=== PATIENT | female | born 1940 | race Caucasian/White ===

== ENCOUNTER → 2021-02-22 | Outpatient (CLI) | payer MEDICARE, OTHER ==
[2021-02-22 12:41] LABS: HEMOGLOBIN 14.9 gm/dl (12.3-15.3); RED BLOOD COUNT 4.84 M/UL (4.00-5.10); WHITE BLOOD COUNT 7.4 K/UL (4.5-11.0)
[2021-02-22 13:31] LABS: BUN/CREATININE RATIO 19 (0-10)
== END ==
LOC: LAB 11:48
PROVIDERS: Nurse Practitioner Family
DX: M25.562 Pain in left knee (principal); M25.561 Pain in right knee; M25.552 Pain in left hip; I25.10 Atherosclerotic heart disease of native coronary artery without angina pectoris; N39.0 Urinary tract infection, site not specified; R25.1 Tremor, unspecified; E53.8 Deficiency of other specified B group vitamins; E55.9 Vitamin D deficiency, unspecified
CPT/HCPCS: 36415; 73502; 73562; 80053; 80061; 82607; 84439; 84443; 85025

== ENCOUNTER 2021-04-26 17:30 | Emergency (ER) | payer MEDICARE ==
[2021-04-26 20:37] LABS: RED BLOOD COUNT 4.81 M/UL (4.00-5.10); WHITE BLOOD COUNT 5.7 K/UL (4.5-11.0)
[2021-04-26 20:53] LABS: BUN/CREATININE RATIO 55 (0-10)
== END 2021-04-27 13:07 | disposition short-term general hospital (02) ==
LOC: ER1 17:30
DX: G30.9 Alzheimer's disease, unspecified (principal); F02.81 Dementia in other diseases classified elsewhere, unspecified severity, with behavioral disturbance; Z20.822 Contact with and (suspected) exposure to COVID-19
CPT/HCPCS: 80053; 81001; 82550; 82553; 83874; 84439; 84443; 84484; 85025; 93005; 96374; 99285; J2060; U0002

== ENCOUNTER 2021-07-16 07:51 | Emergency (ER) | payer MEDICARE | END 2021-07-16 10:55 | disposition home or self-care (01) | LOC: ER1 07:51 | DX: S32.018A Other fracture of first lumbar vertebra, initial encounter for closed fracture (principal); S32.048A Other fracture of fourth lumbar vertebra, initial encounter for closed fracture; S32.058A Other fracture of fifth lumbar vertebra, initial encounter for closed fracture; G30.9 Alzheimer's disease, unspecified; F02.80 Dementia in other diseases classified elsewhere, unspecified severity, without behavioral disturbance, psychotic disturbance, mood disturbance, and anxiety; I10 Essential (primary) hypertension; W19.XXXA Unspecified fall, initial encounter | CPT/HCPCS: 72131; 72170; 93005; 99284 ==

== ENCOUNTER → 2021-09-06 | Outpatient (CLI) | payer MEDICARE ==
[2021-09-06 11:07] LABS: HEMOGLOBIN 14.8 gm/dl (12.3-15.3); RED BLOOD COUNT 4.89 M/UL (4.00-5.10); WHITE BLOOD COUNT 8.8 K/UL (4.5-11.0)
[2021-09-06 11:35] LABS: BUN/CREATININE RATIO 60 (0-10)
== END ==
LOC: LAB 10:48
PROVIDERS: Nurse Practitioner Family
DX: E78.5 Hyperlipidemia, unspecified (principal); I10 Essential (primary) hypertension; E53.8 Deficiency of other specified B group vitamins; E55.9 Vitamin D deficiency, unspecified
CPT/HCPCS: 36415; 80053; 80061; 82607; 84439; 84443; 85025

== ENCOUNTER 2021-10-16 07:35 | Emergency (ER) | payer MEDICARE ==
[2021-10-16 09:10] LABS: HEMOGLOBIN 14.4 gm/dl (12.3-15.3); RED BLOOD COUNT 4.7 M/UL (4.00-5.10)
[2021-10-16 09:40] LABS: BUN/CREATININE RATIO 60 (0-10)
[2021-10-16] MEDS ORDERED: MACROBID 100 M100 MG PO (11:22)
== END 2021-10-16 11:35 | disposition home or self-care (01) ==
LOC: ER1 07:35
PROVIDERS: Nurse Practitioner
DX: S80.212A Abrasion, left knee, initial encounter (principal); M25.551 Pain in right hip; M25.552 Pain in left hip; R10.2 Pelvic and perineal pain; I10 Essential (primary) hypertension; W19.XXXA Unspecified fall, initial encounter; Y92.009 Unspecified place in unspecified non-institutional (private) residence as the place of occurrence of the external cause
CPT/HCPCS: 70450; 71045; 72125; 73522; 80053; 81001; 85025; 87077; 87086; 87186; 96374; 99284

== ENCOUNTER 2021-10-17 10:19 | Emergency (ER) | payer MEDICARE ==
[~2021-10-17 10:19] MED LIST: MACROBID 100 M100 MG PO
== END 2021-10-17 12:14 | disposition home or self-care (01) ==
LOC: ER1 10:19
DX: S60.221A Contusion of right hand, initial encounter (principal); W20.8XXA Other cause of strike by thrown, projected or falling object, initial encounter; Y92.009 Unspecified place in unspecified non-institutional (private) residence as the place of occurrence of the external cause
CPT/HCPCS: 73130; 99283